=== PATIENT | female | born 1935 | race Caucasian/White ===

== ENCOUNTER 2019-04-04 10:50 | Observation (INO) | payer MEDICARE, SELFPAY ==
[2019-04-03 09:34] VITALS: BMI 25.5
[2019-04-04] VITALS (33 sets, daily range): BP systolic 107–162; BP diastolic 45–79; PULSE 46–85; RESP 0–26; TEMP 36.8; O2SAT 91–99
--- NOTE | 2019-04-04 07:30 | XACV_ITS ---
Ht: 163 cm Wt: 68 kg BSA: 1.76 m2 Gender: Female : 1935 Any Known Allergies: Other Exam Priority: Routine Procedure(s): Procedure Description: Diagnostic procedure Procedure Description: PCI procedure Procedure Description: Left Heart Catheterization Procedure Description: IRWIN Graft Catheterization Procedure Description: Drug Eluting Coronary Stent Procedure Description: PTCA Procedure Description: Miscellaneous Procedure Description: ACT Diagnostic Findings LM: Moderate 50% stenosis, CODI: 3 flow. pLAD: Severe 100% stenosis, CODI: 0 flow. dCIRC: Moderate 50% stenosis, CODI: 3 flow. Second Obtuse Marginal Branch Segment: Severe 90% stenosis, CODI: 2 flow. pRCA: Severe 100% stenosis, CODI: 0 flow. RPDA: Moderate 50% stenosis, CODI: 3 flow. Two grafts visualized. IRWIN to dLAD: patent. SVG to RPDA: patent. Coronary angiography shows right dominance. PCI Status: Elective PCI Indication: New Onset Angina <= 2 months Interventional Findings Second Obtuse Marginal Branch Segment: 90% stenosis treated with AB MINI TREK 2.00X8 RX BALLOON and MDT R MARGARITA 2.0X12 JACEY. 0% residual stenosis, CODI: 3 flow. Conclusions There is severe coronary artery disease with four vessel disease. All grafts patent. Patient has prior CABG. Second Obtuse Marginal Branch Segment was treated with Balloon and Drug Eluting Stent. Recommendations 1-Return to inpatient for close monitoring and routine cath care2-Risk factor modification for secondary prevention3-Statin and aspirin 81 mg life-long, if tolerated4-Continue Plavix 75mg p.o. daily for at least one year. We will assess at the end of one year again to continue if further or not5-Continue optimal medical management6-Follow up with Dr. Mccormick in four weeks and your primary care in 10 days. Interventional RX Recommendation: PCI w/o planned CABG Diagnostic RX Recommendation: PCI w/o planned CABG Pressures Phase:Rest AO : 93 mmHg / 55 mmHg ( 73 mmHg ) @ 3:39:00 AM 108 mmHg / 59 mmHg ( 83 mmHg ) @ 3:46:00 AM 106 mmHg / 48 mmHg ( 72 mmHg ) @ 4:09:00 AM 100 mmHg / 53 mmHg ( 74 mmHg ) @ 4:13:00 AM 118 mmHg / 52 mmHg ( 76 mmHg ) @ 4:36:00 AM Clinical Evaluation EBL: 5mL-10mL Procedural Details Procedure Consent Obtained. Pre-Procedure Time Out. Identified patient by full name and date of as verbalized by the patient/guarantor. Does the consent match the physician's order: Yes. Accurate & Complete Informed Consent: Yes. Inpatient/Outpatient History & Physical on Chart: Yes. If H&P is completed, is and addenduem needed: N/A; If yes, is the addendum complete: N/A. Visualize and Verify Site with Patient/Guarantor: N/A. Relevant Radiology Images available: Yes. Pre-op teaching completed and patient verbalized understanding. The risks, benefits, and alternatives of sedation and/or procedure were discussed by physician. The patient agrees to continue. Procedure started. Correct patient, site and procedure confirmed by cath team. PERRLA. Strong, equal hand densitometrist bilaterally. Lungs clear x 5 lobes. IV Site on Arrival: 20 gauge in the right anticubital. IV Fluids: 0.9% NaCl at KVO. 0 mL infused prior to laborer tree tapping. Pre Procedural Pulses: bilateral dorsalis pedis was 2+. Pre Procedural Pulses: bilateral posterior tibial was 2+. Pre Procedural Pulses: bilateral radial was 2+. Oxygen started at 2liters/min via nasal canula. bilateral groins was prepped with chloroprep then draped in the usual sterile fashion. Physician notified. Equipment: 6F - Femoral. Cardiac Cath Pack. ACIST Manifold Kit Model BT 2000. Heparinized Saline (2 units/mL), 1000 mL bag. Kit, Micropuncture. Physician arrived. Baseline sample Acquired. HR: 52 BPM. Physician scrubbed in. Immediate Pre-Procedure Time Out. Correct Patient: Yes; Correct Procedure: Yes; Correct Site: Yes; Correct Patient Position: Yes; Correct Supplies: Yes; Dried Flammable Prep: Yes; Blood Products Available: No;. Lidocaine 1% infiltrated to the right groin. Arterial access obtained with micropuncture set. A 5 bolivian JL4 catheter in over wire. Multiple views taken of left coronary artery. Catheter out. A 5 bolivian JR4 catheter in over wire. SVG's to RCA visualized and patent. IRWIN to LAD visualized. A 6 bolivian JR4 catheter in over wire. Dr. Mccormick scrubbed out to review films. Inventory is LogicNets Waldo XT .[address] Guidewire. Dr. Mccormick scrubbed in to perform intervention. 6 bolivian XB 3SH guide catheter was inserted over the wire. Patient's family updated. Surgery (Cynthia) notified of intervention. Waldo guidewire was advanced through the guide catheter to lesion in the OM. Wire out. Inventory is TR 180cm Runthrough NS extra floppy 0.014 wire. Unable to cross lesion, guidewire removed. Runthrough guidewire was advanced through the guide catheter to lesion in the OM. Inflation number : 1 A AB MINI TREK 2.00X8 RX BALLOON was prepped and advanced across the 2nd Ob Liseth , then inflated to 12 LIZZETH for 0:21 seconds. Inflation number: 2 The AB MINI TREK 2.00X8 RX BALLOON was reinflated across the 2nd Ob Liseth, to 12 LIZZETH for 0:11 seconds. Balloon out. Results checked. Inflation Number : 3 A ELZA Shrestha MARGARITA 2.0X12 JACEY -Lot Number# [id number] exp 09-12-2019 was prepped and advanced across the 2nd Ob Liseth. The stent was deployed at 12 LIZZETH for 0:19 seconds. Stent balloon out over wire. ACT drawn. Results 231 seconds. Therapeutic limits - pre-heparin administration 90-150 seconds and monitoring heparin during a vascular procedure >250 seconds. Guide catheter out. A Suture was successful obtaining hemostatsis at the Right Femoral artery insertion site. Sheath(s) sutured into position with 2-0 silk and sterile 4x4's and Op-site applied over the site. No oozing or signs and symptoms of hematoma noted. Arterial sheath flushed and connected to tranducer and pressure bag with heparinized saline. Post Procedure: Pulses reassessed and unchanged. PERRLA. Strong, equal hand densitometrist bilaterally. No VTE prophylaxis required. Total IV fluids: 114 mL. Fluoro: 20:40. Contrast type used: Visipaque 320 mgI/mL, 200 mL bottle. [id number]. Post-op diagnosis: PCI OM. Complications: none. Estimated blood loss: 5mL-10mL. Procedure completed. Patient transferred by bed to ICU. Medication's Wasted: Other = fentanyl 25 mcg. Medication's Wasted: Nitro = 49.4 mg. Medication's Wasted: Heparin = 4000 units. Medication's Wasted: Lidocaine 1% = 10 mL. Vital chart was stopped. PCI Indication: Stable Angina. [facility] Clinical Fraility Score: 4: Vulnerable. Accounts Officer Indications: New Onset Angina. Chest Pain Symptom Assessment: Typical Angina Symptoms. Cardiovascular Instability: No. Site: Right Femoral artery Sheath Size: 6 Fr Hemostasis Method: Suture Hemostasis Success: Successful Procedure Medications Start: 9:28 AM Stop: 9:28 AM Medication: Versed Amount: 1 mg Route: I.V. Start: 9:28 AM Stop: 9:28 AM Medication: Fentanyl Amount: 25 mcg Route: I.V. Start: 9:32 AM Stop: 9:32 AM Medication: Versed Amount: 1 mg Route: I.V. Start: 9:53 AM Stop: 9:53 AM Medication: Versed Amount: 1 mg Route: I.V. Start: 9:53 AM Stop: :53 AM Medication: Fentanyl Amount: 25 mcg Route: I.V. Start: 10:03 AM Stop: 10:03 AM Medication: Heparin Amount: 7000 units Route: I.V. Start: 10:11 AM Stop: 10:11 AM Medication: Nitrogylcerin Amount: 200 mcg Route: I.C. Start: 10:21 AM Stop: 10:21 AM Medication: Versed Amount: 1 mg Route: I.V. Start: 10:21 AM Stop: 10:21 AM Medication: Fentanyl Amount: 25 mcg Route: I.V. Start: 10:25 AM Stop: 10:25 AM Medication: Nitrogylcerin Amount: 200 mcg Route: I.C. Start: 10:34 AM Stop: 10:34 AM Medication: Nitrogylcerin Amount: 200 mcg Route: I.C. I, the attending physician, have reviewed and verified all procedure medications. Yes, all medications given per verbal order History/Risk Factors Hypertension: Yes Dyslipidemia: Yes Peripheral Arterial Disease (PAD): No Myocardial Infarction (AZ): No Obesity: No Renal Disease: No Tobacco Use: Never Prior Interventions PCI: Yes CABG: Yes Valve Surgery: No Report Signatures Finalized by:Jerel Mccormick MD on 04/15/2019 12:18:24 PM
[2019-04-04] MEDS: diphenhydrAMINE 50 mg Capsule PO (07:53)
[2019-04-04 08:24] LABS: Basophils % 0.4 %; Eosinophils # 0.2 10^3/uL (0.0-0.8); Hematocrit 42.2 % (37.0-47.0); Hemoglobin 13.7 g/dL (11.5-15.3); Lymphocytes # 1.9 10^3/uL (0.8-4.8); Lymphocytes % 36.2 %; Mean Corpuscular HGB Conc 32.5 g/dL (30.0-36.0); Mean Corpuscular Hemoglobin 28.2 pg (28.0-34.0); Mean Corpuscular Volume 86.8 fL (81-99); Mean Platelet Volume 10.3 fL (7.4-10.4); Monocytes # 0.5 10^3/uL (0.2-0.9); Monocytes % 10.1 %; Neutrophils # 2.7 10^3/uL (1.8-7.7); Neutrophils % 49.9 %; Nucleated Red Blood Cells % 0 %; Platelet Count 169 10^3/cmm (130-400); Red Blood Count 4.86 10^6/uL (4.1-5.3); Red Cell Distribution Width 12.4 % (12.1-15.1); White Blood Count 5.3 10^3/uL (4.0-10.0)
[2019-04-04 08:41] LABS: Anion Gap 15.9 (5-19); Blood Urea Nitrogen 12 mg/dL (8-23); Calcium 10.3 mg/dL (8.5-10.5); Carbon Dioxide 27 mmol/L (22-29); Chloride 99 mmol/L (98-107); Glucose 113 mg/dL (65-115); Osmolality Calculated 283 mOsm/kg (285-295); Potassium 3.9 mmol/L (3.5-5.1); Sodium 138 mmol/L (136-145)
--- NOTE | 2019-04-04 13:57 | PC.NURSE ---
pt. took all her home meds this am
--- NOTE | 2019-04-04 15:59 | PC.CHAP ---
Pastoral Care Encounter/Spiritual Assessment Type of Contact [] Declined value engineer visit [] Patient/Family/Request visit [] Outpatient visit [] Follow-up visit [] Physician referral [] Code/Alert [x] Routine visit [] Staff referral [] Actively dying [] Patient sleeping [] Family support [] [] Out of room [] Palliative care [] [] Receiving care in room [] Pre-surgical visit [] Trauma [] Long length of stay [] ICU visit [] Other: Relational/Emotional Strength [x] Patient feels connected with others/family/visitors/staff [] Distress [] Loneliness/isolation [] Abandonment Spirituality of Patient [x] Person of Abbi [] Attends Sikhism of their Abbi [x] Believes in Prayer [] Reads Bible or Christian materials [] There are Spiritual issues to be addressed Comparator Operator Interventions [x] Prayer [x] Active listening [x] Non-anxious presence [x] Spiritual/emotional support [] Crisis/trauma care [] Spiritual counseling [] Bereavement support [] Provided bereavement packet [] Provided Bible/devotional materials [] Provided toy/stuffed animal, coloring book to patient or family member [] Provided Communion [] Anointing/[place] [] Salvation [x] Completed spiritual assessment [] Other: Impact on Illness or Injury [] Angry [] Fearful [] Anxious [] Often cries [] Exhaustion [] Unable to work [] Unable to attend buddhist [] Unable to walk/stand [] Unable to read [] Unable to drive [] Unable to eat/drink [] Unable to sleep [] Unable to be with family [] Patient intubated [] Other: Summary Pt. believes God is in control of her situation. Pt stsates she feel much better and may go home Sunday. Pt had two visitors who are very supportive of her. Time spent with patient 12 minutes
--- NOTE | 2019-04-04 16:58 | PC.NURSE ---
another ptt ordered. drainage to right groin increased. not gross. difficult to keep pt. from using right leg. pt. states you may have to secure my leg .. will monitor.
[2019-04-04 18:05] LABS: Partial Thromboplastin Time 27.4 SECONDS (23.9-36.7)
[2019-04-05] VITALS (18 sets, daily range): BP systolic 114–159; BP diastolic 50–77; PULSE 58–85; RESP 16–21; TEMP 36.8–36.9; O2SAT 91–98
[2019-04-05] MEDS: aspirin 81 mg EC Tablet PO (08:34)
[2019-04-05] MEDS: metoprolol tartrate 25 mg Tablet PO (08:34)
[2019-04-05] MEDS: levothyroxine 50 mcg Tablet PO (08:35)
[2019-04-05] MEDS: isosorbide mononitrate ER 30 mg Tablet 15 MG PO (08:35)
[2019-04-05] MEDS: clopidogrel 75 mg Tablet PO (08:35)
[2019-04-05] MEDS: atorvastatin 40 mg Tablet 20 MG PO (08:35)
--- NOTE | 2019-04-05 11:18 | PC.CHAP ---
Pastoral Care Encounter/Spiritual Assessment Type of Contact [] Declined ditching machine operating engineer visit [] Patient/Family/Request visit [] Outpatient visit [] Follow-up visit [] Physician referral [] Code/Alert [X] Routine visit [] Staff referral [] Actively dying [] Patient sleeping [] Family support [] [] Out of room [] Palliative care [] [] Receiving care in room [] Pre-surgical visit [] Trauma [] Long length of stay [] ICU visit [X] Other: Being discharged Relational/Emotional Strength [] Patient feels connected with others/family/visitors/staff [] Distress [] Loneliness/isolation [] Abandonment Spirituality of Patient [] Person of Abbi [] Attends Anabaptist of their Abbi [] Believes in Prayer [] Reads Bible or Mormon materials [] There are Spiritual issues to be addressed Compliance Intern Interventions [] Prayer [] Active listening [] Non-anxious presence [] Spiritual/emotional support [] Crisis/trauma care [] Spiritual counseling [] Bereavement support [] Provided bereavement packet [] Provided Bible/devotional materials [] Provided toy/stuffed animal, coloring book to patient or family member [] Provided Communion [] Anointing/[place] [] Salvation [] Completed spiritual assessment [] Other: Impact on Illness or Injury [] Angry [] Fearful [] Anxious [] Often cries [] Exhaustion [] Unable to work [] Unable to attend alevism [] Unable to walk/stand [] Unable to read [] Unable to drive [] Unable to eat/drink [] Unable to sleep [] Unable to be with family [] Patient intubated [] Other: Summary Time spent with patient
[2019-04-05 12:27] LABS: Basophils % 0.2 %; Eosinophils # 0.2 10^3/uL (0.0-0.8); Hematocrit 41.9 % (37.0-47.0); Hemoglobin 13.7 g/dL (11.5-15.3); Lymphocytes # 1.6 10^3/uL (0.8-4.8); Lymphocytes % 31.5 %; Mean Corpuscular HGB Conc 32.7 g/dL (30.0-36.0); Mean Corpuscular Hemoglobin 28.6 pg (28.0-34.0); Mean Corpuscular Volume 87.5 fL (81-99); Mean Platelet Volume 10.1 fL (7.4-10.4); Monocytes # 0.5 10^3/uL (0.2-0.9); Monocytes % 10.6 %; Neutrophils # 2.7 10^3/uL (1.8-7.7); Neutrophils % 54.3 %; Nucleated Red Blood Cells % 0 %; Platelet Count 176 10^3/cmm (130-400); Red Blood Count 4.79 10^6/uL (4.1-5.3); Red Cell Distribution Width 12.5 % (12.1-15.1); White Blood Count 4.9 10^3/uL (4.0-10.0)
[2019-04-05 12:39] LABS: Blood Urea Nitrogen 15 mg/dL (8-23); Calcium 10.3 mg/dL (8.5-10.5); Carbon Dioxide 26 mmol/L (22-29); Chloride 100 mmol/L (98-107); Glucose 124 mg/dL (65-115); Osmolality Calculated 284 mOsm/kg (285-295); Sodium 138 mmol/L (136-145)
--- NOTE | 2019-04-05 12:56 | PM.SDS ---
Short Stay Summary Providers Date of Admit/Discharge: 04/05/19 Attending Provider: Jerel Mccormick MD Primary Care Provider: Richie Figueroa MD HPI History of Present Illness Amber Araujo is a 83 year old female past medical history significant for coronary artery multivessel disease status post coronary artery bypass surgery with IRWIN to LAD and SVG to RCA in 2003. She is also status post multiple stent to RCA before the surgery. Yesterday she underwent left heart cath for worsening of lifestyle limiting angina despite of maximal medical management. She was noted to have patent IRWIN to LAD and SVG to RCA however distal left main has 50% stenosis while medium size and caliber obtuse marginal was noted to have 90% ostial calcified stenosis thought to be culprit. It was treated with 2.0 x 15 mm vero integrity stent posted at high LIZZETH. Excellent angiographic result was achieved. It was also noted that patient distal to SVG to RCA graft has chitimacha lesion which is 50% thought to be managed medically. Overnight and post PCI patient did not have any complication. Right groin wound looks good. She says she is feeling 100% better and walking around without any difficulty. She is being discharged home. We will follow-up her in 7 to 10 days in our cardiology clinic. She is also instructed to follow-up with primary care physician in 2 weeks. Review of Systems General: Reports: 10 or more systems reviewed and unremarkable except in HPI and below Home Meds/Allergies Home Medications and Allergies Home Medications Medication Instructions Recorded Confirmed Type aspirin 81 mg tablet,delayed 81 mg PO QDAY 03/26/19 04/04/19 History release levothyroxine 50 mcg tablet 50 mcg PO QDAY 03/26/19 04/04/19 History lovastatin 40 mg tablet 60 mg PO QDAY tab 03/26/19 04/04/19 History magnesium oxide 400 mg PO QDAY 03/26/19 04/04/19 History PreserVision AREDS 1 tab PO DAILY 04/03/19 04/04/19 History coenzyme Q10 60 mg PO DAILY 04/03/19 04/04/19 History Allergies Allergy/AdvReac Type Severity Reaction Status Date / Time acetaminophen Allergy ADR-Vomitin Verified 04/04/19 08:22 [From Darvocet-N] g codeine Allergy ADR-Vomitin Verified 04/04/19 08:22 g hydrocodone [From Vicodin] Allergy ADR-Vomitin Verified 04/04/19 08:22 g oxycodone [From Percocet] Allergy ADR-Vomitin Verified 04/04/19 08:22 g propoxyphene Allergy ADR-Vomitin Verified 04/04/19 08:22 [From Darvocet-N] g PFSH Acute PFSH: Statuses (acute, chronic, etc) shown below reflect problem list status as previously entered and may not be historically accurate Social History Smoking and tobacco status: never smoked Vitals/I&O/Wt Last Vital Signs Temp 98.4 F 04/05/19 08:00 Pulse 65 04/05/19 12:00 Resp 16 04/05/19 12:00 BP 141/75 04/05/19 12:00 Pulse Ox 98 04/05/19 10:00 04/04/19 04/05/19 04/05/19 22:59 06:59 14:59 Intake Total 360 / 720 120 / 840 480 / 480 Output Total 300 / 700 600 / 1300 Balance -480 / -460 480 / 480 Physical Exam Narrative: EXAM NARRATIVE: GENERAL: Patient is alert, awake and oriented x3. NECK: No jugular vein distension. HEENT: No cyanosis. No icterus. No pallor. HEART: Regular S1 and S2. No murmur, rub or gallop. LUNGS: Clear to auscultate bilaterally. ABDOMEN: Soft, nontender and nondistended. Positive bowel sounds. No guarding, rebound or tenderness. CENTRAL NERVOUS SYSTEM: Grossly nonfocal. EXTREMITIES: Lower extremities without edema bilaterally. Right groin looks good no hematoma. No bruising Hospital Course Admission Diagnoses: Unstable angina History of coronary artery bypass surgery History of multiple MIs History of hypertension Hyperlipidemia Hospital Course: As above Discharge Summary: As above SSS Data Data Completed and Pending: Pending at discharge Category Date Time Status HYDRO TECHNICIAN request for service Routin e Exams 04/04/19 07:30 Taken Diagnoses at Discharge Discharge Diagnosis (1) Systolic heart failure: Status: Acute Problem details: Well compensated. Continue current regimen Qualifiers: Heart failure chronicity: chronic Qualified Code(s): I50.22 - Chronic systolic (congestive) heart failure (2) HTN (hypertension): Status: Acute Problem details: Well-controlled continue current Qualifiers: Hypertension type: essential hypertension Qualified Code(s): I10 - Essential (primary) hypertension (3) S/P CABG (coronary artery bypass graft): Status: Acute Problem details: Status post coronary artery bypass in 2003 with IRWIN to LAD and SVG to RCA. (4) Chest pain: Status: Acute Problem details: Unstable angina, status post PCI to obtuse marginal 1 with single drug-eluting stent. Qualifiers: Ischemic chest pain type: unstable angina pectoris Discharge Plan Discharge Patient Disposition: Home, Self-Care Condition: Stable Prescriptions: Continued isosorbide mononitrate 30 mg tablet extended release 24 hr 15 mg PO BID 30 Days Qty: 30 RF: 6 levothyroxine [Synthroid] 50 mcg tablet 50 mcg PO QDAY RF: 0 aspirin [Adult Low Dose Aspirin] 81 mg tablet,delayed release (DR/EC) 81 mg PO QDAY RF: 0 magnesium oxide 400 mg magnesium capsule 400 mg PO QDAY RF: 0 lovastatin 40 mg tablet 60 mg PO QDAY RF: 0 nitroglycerin 0.4 mg tablet, sublingual 0.4 mg SUBLINGUAL Q5M PRN (Reason: chest pain) Qty: 1 RF: 3 metoprolol tartrate 25 mg tablet 25 mg PO BID 30 Days Qty: 60 RF: 6 coenzyme Q10 60 mg Capsule 60 mg PO DAILY RF: 0 PreserVision AREDS [id number] [id number] Tablet 1 tab PO DAILY RF: 0 clopidogrel 75 mg tablet 75 mg PO QDAY 30 Days Qty: 90 RF: 4 Discharge Orders: Discharge Order (Routine); Ordered 04/05/19 Ordered By: Jerel Mccormick Discharge Diet: Cardiac Discharge Activity: Increase activity as tolerated Activity Restrictions/Additional Instructions: No lifting more than a gallon of milk, no driving, no walking more than few steps upstairs for next 3 days. Please follow-up with Griselda Knox in cardiology clinic in 7 to 10 days. Please follow-up with Dr. Mccormick in 6 to 8 weeks Attestations Medical Necessity Statement*: Patient can be discharged home post PCI Time Spent in Patient Care*: greater than 30 min Specific Discharge Activities: Specific discharge activities: educating patient and educating and/or supporting family/caregiver Quality Metrics Clinical Quality Measures: During this hospital stay, did patient experience: None Coding Level of Care Code New Pt Acute Chin Strap Sewer for Chg Fwd Patient Type New History Detailed Exam Detailed Medical Decision Making Moderate Complexity Diagnoses Systolic heart failure I50.22 Heart failure chronicity: chronic HTN (hypertension) I10 Hypertension type: essential hypertension S/P CABG (coronary artery bypass graft) Z95.1 Chest pain R07.9 Ischemic chest pain type: unstable angina pectoris
== END 2019-04-05 13:40 | disposition home or self-care (01) ==
LOC: ICU 11:52
PROVIDERS: Admitting Provider Internal Medicine Cardiovascular Disease; Family Provider Family Medicine; PCP Family Medicine; Visit Provider Internal Medicine Cardiovascular Disease
DX: I25.10 Atherosclerotic heart disease of native coronary artery without angina pectoris (principal); I11.0 Hypertensive heart disease with heart failure; I50.22 Chronic systolic (congestive) heart failure; Z95.1 Presence of aortocoronary bypass graft; I25.110 Atherosclerotic heart disease of native coronary artery with unstable angina pectoris; Z79.82 Long term (current) use of aspirin; E78.5 Hyperlipidemia, unspecified
CPT/HCPCS: 12345; 36415; 80048; 85025; 85347; 85730; 93455; C1725; C1769; C1874; C1887; C1894; C9600; G0378; J1644; J2001; J2250; J3010; J3490; J7030; Q0163; Q9967

== ENCOUNTER → 2019-04-17 11:41 | Outpatient (BNVA) | payer MEDICARE, SELFPAY | PROVIDERS: Family Provider Family Medicine; PCP Family Medicine; Visit Provider Nurse Practitioner Family | DX: I25.119 Atherosclerotic heart disease of native coronary artery with unspecified angina pectoris (principal) | CPT/HCPCS: 80048 ==

== ENCOUNTER 2019-04-30 13:53 | Outpatient (RCR) | payer MEDICARE, SELFPAY | END 2019-05-27 23:59 | disposition home or self-care (01) | LOC: CR 13:53 | PROVIDERS: Family Provider Family Medicine; PCP Family Medicine; Referring Provider Internal Medicine Cardiovascular Disease; Visit Provider Internal Medicine Cardiovascular Disease | DX: I25.10 Atherosclerotic heart disease of native coronary artery without angina pectoris (principal); Z95.5 Presence of coronary angioplasty implant and graft | CPT/HCPCS: 93798 ==

== ENCOUNTER 2019-09-30 09:08 | Outpatient (CLI) | payer MEDICARE, SELFPAY ==
[2019-09-30 09:16] VITALS: BMI 25.8
--- NOTE | 2019-09-30 09:17 | ECG_ITS ---
[facility] Test Date: 2019-09-30 Pat Name: Amber Araujo Department: Room: Gender: Female Research Agricultural Engineer: : 1935 Requested By: Jerel Mccormick Order Number: [id number] Simeon MD: Alex Yeboah M.D. Interpretive Statements NAME OF STUDY: LEXISCAN SESTAMIBI STRESS TEST INDICATION: [Shortness of Breath] Procedure: At the baseline the blood pressure was 152/63 mmHg, oxygen saturation was 97 % with a heart rate of 54. The electrocardiogram showed sinus bradycardia with right bundle branch block. Lexiscan was infused over a period of 20 seconds. A total of 0.4 mg of Lexiscan was infused. The stress phase was continued for a total of 5 minutes. Heart rate at the end of stress phase was 63, with a blood pressure of 150/80 and oxygen saturation of 97 %.the EKG at peak infusion revealed sinus rhythm with nonspecific ST-T wave changes. Sestamibi was injected 20 seconds after the Lexiscan infusion. Blood pressure at the end of recovery phase was 177/67, with a heart rate of 63 and oxygen saturation of 97%. Conclusion 1. Normal EKG response to Lexiscan infusion 2. No Lexiscan induced chest pain or cardiac arrhythmia. Patient had intraprocedure shortness of breath. 3. Patient became hypertensive during recovery. Normal heart rate response. 4. Sestamibi/sestamibi perfusion scan pending see separate report. Electronically Signed On 10-01-2019 16:49:29 CDT by lAex Yeboah M.D. [id number]
--- NOTE | 2019-09-30 09:17 | NMCV_ITS ---
NM sheryl perf SPECT r/s* [id number] Amber Araujo Age: 84 Gender: F : 1935 Exam Date: 09/30/2019 09:17 Ordering Phys: Jerel Mccormick MD ([email or web address]) Technologist: QUIRINO Cervantes Exam Location: [facility] Indications: SOB STRESS TEST Please see separate stress test report in [facility] for full findings IMAGE PROTOCOL Rest/Stress 1 Lexiscan Day Radiopharmaceutical Dose (mCi) Administration Site Administered by Rest: Tc-99m 10.9 IV QUIRINO Schroeder Sestamibi Stress:Tc-99m 32.6 IV QUIRINO Cervantes Sestamibi Rest: 30-Sep-2019 60 Discovery 630 Stress: 30-Sep-2019 45 Discovery 630 0.4mg Lexiscan. Images obtained in supine and prone position. SPECT RESULTS Technical Quality: Good Raw Data Analysis: Normal Image Corrections: No attenuation or motion correction applied Summed Stress Score: 26 Summed Rest Score: 15 Summed Difference Score: 11 PERFUSION FINDINGS Large area of fixed perfusion defect noted in basal to distal inferior inferolateral and basal to mid lateral wall suggestive of old myocardial infarction versus scarring. FUNCTIONAL RESULTS (calculated via Gated SPECT) Stress Image LV EF (%): 54 Stress EDV (mL):103 TID: 0.81 Stress ESV (mL):47 Rest Image LV EF (%): 54 FUNCTIONAL FINDINGS: Inferior and lateral wall akinesis IMPRESSIONS Large area of old myocardial infarction versus scarring noted in basal to distal inferior, basal to distal inferolateral and basal to mid lateral wall suggestive of lesion of either dominant circumflex or dominant RCA. No significant ischemia noted. EKG segment will be documented separately. Jerel Mccormick MD (Electronically Signed) Final Date: 01 October 2019 19:39 S
[2019-09-30] MEDS: regadenoson 0.4 Mg/5 ml Syringe IVP (11:31)
--- NOTE | 2019-09-30 11:31 | SUR.PREOP ---
Patient reports no pain or discomfort prior to the start of the procedure.
[2019-09-30 12:05] VITALS: BP 156/73; PULSE 63
== END 2019-09-30 09:09 | disposition home or self-care (01) ==
LOC: CDL 09:10
PROVIDERS: Family Provider Family Medicine; PCP Family Medicine; Visit Provider Internal Medicine Cardiovascular Disease
DX: R06.02 Shortness of breath (principal); I25.2 Old myocardial infarction
CPT/HCPCS: 78452; 93017; A9500; J2785

== ENCOUNTER 2020-01-06 12:25 | Outpatient (CLI) | payer MEDICARE, SELFPAY ==
--- NOTE | 2020-01-06 12:34 | MM_ITS ---
WS: [id number] BILATERAL DIGITAL SCREENING MAMMOGRAPHY WITH CAD CLINICAL INFORMATION: SCREENING HISTORY: Screening mammogram. No current complaints. COMPARISON: August 28, 2018 TECHNIQUE: Bilateral CC and MLO views. FINDINGS: Scattered fibroglandular densities bilaterally. No suspicious focal mass, asymmetry, calcifications, or architectural distortion. No evidence of malignancy. Biopsy marker outer left breast. MM/[place] [id number] IMPRESSION: BI-RADS: 2-Benign FOLLOW UP: 1 Year Follow-up Recommend return to annual screening mammography.
== END 2020-01-06 12:26 | disposition home or self-care (01) ==
PROVIDERS: PCP Family Medicine; Visit Provider Family Medicine
DX: Z12.31 Encounter for screening mammogram for malignant neoplasm of breast (principal)
CPT/HCPCS: 77067

== ENCOUNTER → 2020-01-23 13:31 | Outpatient (BNVA) | payer MEDICARE, SELFPAY | PROVIDERS: PCP Family Medicine; Visit Provider Internal Medicine Pulmonary Disease | DX: Z11.59 Encounter for screening for other viral diseases (principal) | CPT/HCPCS: 87635 ==

== ENCOUNTER 2020-01-27 08:34 | Outpatient (CLI) | payer MEDICARE, SELFPAY ==
--- NOTE | 2020-01-27 11:02 | PFTS_ITS ---
Date of Study:01/27/20 Date of Dictation: MECHANICS: Forced vital capacity (FVC) is normal. Forced expiratory volume in one second (FEV1) is normal. FEV1/FVC is normal. FLOW VOLUME LOOP: Mild scooping. LUNG VOLUMES: Total lung capacity (TLC) is normal. Residual volume (RV) is normal. DIFFUSING CAPACITY FOR CARBON MONOXIDE: Normal. INTERPRETATION: The pulmonary function tests are normal. Lung volumes are normal. Gas exchange (DLCO) is normal. MTDD
== END 2020-01-27 08:35 | disposition home or self-care (01) ==
LOC: RT 08:37
PROVIDERS: PCP Family Medicine; Visit Provider Internal Medicine Pulmonary Disease
DX: R06.02 Shortness of breath (principal)
CPT/HCPCS: 94010; 94726; 94729